=== PATIENT | male | born 1930 | race Caucasian/White ===

== ENCOUNTER 2018-07-22 18:42 | Inpatient (IN) ==
[2018-07-22] MEDS ORDERED: SODIUM CHLORIDE 0.9% 1,000 ML IV STA (19:43)
[2018-07-22 20:01] LABS: Basophils % 0.2 % (0.0-0.8); Eosinophils % 0.3 % (0.00-10.9); Hematocrit 46.9 VOL% (42.0-52.0); Hemoglobin 15.5 GM/DL (14.0-18.0); Immature Granulocytes % 0.4 %; Immature Granulocytes Absolute 0.05 #; Lymphocytes # 1.1 10*3/uL (1.4-4.0); Lymphocytes % 9.6 % (21.2-54.2); Mean Corpuscular Hemoglobin 31 PG (27-34); Mean Corpuscular Volume 93.6 FL (87-102); Mean Platelet Volume 11.4 FL (9.6-12.0); Monocytes # 0.9 10*3/uL (0.11-0.8); Monocytes % 7.1 % (1.7-12.7); Neutrophils # 9.8 10*3/uL (1.4-7.4); Neutrophils % 82.4 % (38.7-73.9); Platelet Count 156 T/CUMM (130-400); Red Blood Count 5.01 MC/CUMM (3.8-5.5); Red Cell Distribution Width 13.3 % (9.3-17.3); White Blood Count 11.9 T/CUMM (4-12)
[2018-07-22 20:08] LABS: Albumin 4.2 G/DL (3.4-5.0); Bilirubin,Total 1.1 MG/DL (0.2-1.0); Calcium 9.7 MG/DL (8.5-10.1); Osmolality,Calculated 277.7 MOS/KG (273-304); Potassium 4.4 MMOL/L (3.5-5.1); Total Protein 9.1 G/DL (6.4-8.3)
[2018-07-22 20:15] LABS: Apearance,Urine Slightly Hazy (Clear); Bacteria,Urine Many /HPF (Few); Bilirubin,Urine Negative (Negative); Blood, Urine Negative (Negative); Glucose,Urine (UA) Negative (Negative); Ketones,Urine 20 mg/dL (Negative); Mucus,Urine Occasional /LPF (Occasional); Nitrite,Urine Positive (Negative); Protein,Urine 30 MG/DL; RBC,Urine 2 /HPF (0-4); Squamous Epithelial Cell,Urine Occasional /HPF (0-10); Urine Color Yellow (Yellow); Urine Specific Gravity 1.025 (1.001-1.035); WBC,Urine 112 /HPF (0-6)
[2018-07-22] MEDS ORDERED: cefTRIAXone 1,000 MG in SODIUM CHLORIDE 0.9% 100 ML IV STA (20:19)
[2018-07-22] MEDS ORDERED: cefTRIAXone 1,000 MG in SYRINGE 1 EACH IV STA (20:31)
[2018-07-22] MEDS ORDERED: ONDANSETRON 4 MG/2 ML VIAL IV PRN (23:10)
[2018-07-22] MEDS ORDERED: ACETAMINOPHEN 325 MG TABLET PO PRN (23:10)
[2018-07-23] MEDS: ENOXAPARIN 40 MG/0.4 ML SYRINGE SUBCUT SCH ×2 (00:45→23:00)
[2018-07-23] MEDS: SODIUM CHLORIDE 0.9% 1,000 ML IV SCH ×3 (00:49→21:59)
[2018-07-23 04:45] LABS: Basophils % 0.2 % (0.0-0.8); Eosinophils % 0.4 % (0.00-10.9); Hematocrit 39.1 VOL% (42.0-52.0); Hemoglobin 12.8 GM/DL (14.0-18.0); Immature Granulocytes % 0.4 %; Immature Granulocytes Absolute 0.04 #; Lymphocytes # 1.4 10*3/uL (1.4-4.0); Lymphocytes % 14.3 % (21.2-54.2); Mean Corpuscular HGB Conc 32.7 GM/DL (32-36); Mean Corpuscular Hemoglobin 31 PG (27-34); Mean Corpuscular Volume 93.3 FL (87-102); Monocytes # 0.9 10*3/uL (0.11-0.8); Neutrophils # 7.5 10*3/uL (1.4-7.4); Neutrophils % 75.7 % (38.7-73.9); Platelet Count 128 T/CUMM (130-400); Red Blood Count 4.19 MC/CUMM (3.8-5.5); Red Cell Distribution Width 13.3 % (9.3-17.3); White Blood Count 9.9 T/CUMM (4-12)
[2018-07-23 05:09] LABS: Calcium 8.1 MG/DL (8.5-10.1); Osmolality,Calculated 277.5 MOS/KG (273-304); Thyroid Stimulating Hormone 0.964 uIU/ml (0.358-3.74)
[2018-07-23 09:08] LABS: Total Protein (Chem) 6.6 G/DL (6.4-8.3)
[2018-07-23 11:53] LABS: Albumin (SPE) 3.9 G/DL (3.2-5.3); Albumin (SPE) Rel % 59.5 %; Alpha 1 (SPE) 0.2 G/DL (0.1-0.4); Alpha 1 (SPE) Rel % 3.4 %; Alpha 2 (SPE) 0.8 G/DL (0.4-1.0); Alpha 2 (SPE) Rel % 12.5 %; Beta (SPE) 0.8 G/DL (0.5-1.1); Beta (SPE) Rel % 11.4 %; Gamma (SPE) 0.9 G/DL (0.7-1.7); Gamma (SPE) Rel % 13.2 %
[2018-07-23 16:00] LABS: Prostate Specific Antigen Diag 2.1 NG/ML (0-4)
[2018-07-23] MEDS: ASPIRIN EC 81 MG TABLET PO SCH (16:34)
[2018-07-23] MEDS: METOPROLOL SUCCINATE XL 25 MG TABLET PO SCH (18:17)
[2018-07-23] MEDS: cefTRIAXone 1,000 MG in SYRINGE 1 EACH IV SCH (21:51)
[2018-07-24] MEDS: SODIUM CHLORIDE 0.9% 1,000 ML IV SCH (02:26)
[2018-07-24 04:11] LABS: Basophils % 0.3 % (0.0-0.8); Eosinophils # 0.2 10*3/uL (0.0-0.87); Eosinophils % 2.5 % (0.00-10.9); Hematocrit 36.5 VOL% (42.0-52.0); Hemoglobin 11.8 GM/DL (14.0-18.0); Immature Granulocytes % 0.4 %; Immature Granulocytes Absolute 0.03 #; Lymphocytes # 1.5 10*3/uL (1.4-4.0); Lymphocytes % 22.4 % (21.2-54.2); Mean Corpuscular HGB Conc 32.3 GM/DL (32-36); Mean Corpuscular Hemoglobin 31 PG (27-34); Mean Corpuscular Volume 95.1 FL (87-102); Mean Platelet Volume 11.9 FL (9.6-12.0); Monocytes # 0.8 10*3/uL (0.11-0.8); Neutrophils # 4.3 10*3/uL (1.4-7.4); Neutrophils % 62.4 % (38.7-73.9); Platelet Count 124 T/CUMM (130-400); Red Blood Count 3.84 MC/CUMM (3.8-5.5); Red Cell Distribution Width 13.4 % (9.3-17.3); White Blood Count 6.8 T/CUMM (4-12)
[2018-07-24 04:44] LABS: Calcium 7.7 MG/DL (8.5-10.1); Osmolality,Calculated 284.3 MOS/KG (273-304); Potassium 3.9 MMOL/L (3.5-5.1)
[2018-07-24] MEDS: METOPROLOL SUCCINATE XL 25 MG TABLET PO SCH (09:05)
[2018-07-24] MEDS: ASPIRIN EC 81 MG TABLET PO SCH (09:05)
[2018-07-24] MEDS ORDERED: VANCOMYCIN 50 MG/ML 60 ML/BOTTLE PO SCH (13:47)
[2018-07-24] MEDS: VANCOMYCIN 50 MG/ML 60 ML/BOTTLE PO SCH ×2 (15:50→21:01)
[2018-07-24] MEDS: DESITIN 4OZ/NYSTATIN 15 GRAM MIXTURE PASTE TOP SCH ×2 (15:50→21:01)
[2018-07-24] MEDS: cefTRIAXone 1,000 MG in SYRINGE 1 EACH IV SCH (21:01)
[2018-07-25] MEDS: ENOXAPARIN 40 MG/0.4 ML SYRINGE SUBCUT SCH (00:37)
[2018-07-25] MEDS: VANCOMYCIN 50 MG/ML 60 ML/BOTTLE PO SCH ×4 (04:00→22:39)
[2018-07-25] MEDS: ASPIRIN EC 81 MG TABLET PO SCH (09:42)
[2018-07-25] MEDS: METOPROLOL SUCCINATE XL 25 MG TABLET PO SCH (09:42)
[2018-07-25] MEDS: DESITIN 4OZ/NYSTATIN 15 GRAM MIXTURE PASTE TOP SCH ×2 (09:43→22:38)
[2018-07-25] MEDS: APIXABAN 2.5 MG TABLET PO SCH ×2 (10:06→22:36)
[2018-07-25 10:13] LABS: Calcium 8.3 MG/DL (8.5-10.1); Osmolality,Calculated 282.3 MOS/KG (273-304); Potassium 3.9 MMOL/L (3.5-5.1)
[2018-07-25 13:11] LABS: Cancer Antigen 19-9 5.5 U/ML (0-37); Carcinoembryonic Antigen < 0.5 NG/ML (0.0-5.0)
[2018-07-25] MEDS: cefTRIAXone 1,000 MG in SYRINGE 1 EACH IV SCH (22:38)
[2018-07-26] MEDS: VANCOMYCIN 50 MG/ML 60 ML/BOTTLE PO SCH ×2 (04:04→09:45)
[2018-07-26 07:49] VITALS: BP 128/80
[2018-07-26 09:36] LABS: Immuno Free Light Chain Kappa 2.22 MG/DL (0.33-1.94); Immuno Free Light Chain Lambda 1.78 MG/DL (0.57-2.63); Immuno Free Light Chain Ratio 1.25 MG/DL (0.26-1.65)
[2018-07-26] MEDS: APIXABAN 2.5 MG TABLET PO SCH (09:44)
[2018-07-26] MEDS: ASPIRIN EC 81 MG TABLET PO SCH (09:44)
[2018-07-26] MEDS: METOPROLOL SUCCINATE XL 25 MG TABLET PO SCH (09:44)
[2018-07-26] MEDS: DESITIN 4OZ/NYSTATIN 15 GRAM MIXTURE PASTE TOP SCH (09:45)
== END 2018-07-26 11:00 | disposition home or self-care (01) | DRG 372 ==
LOC: N.EDINP 18:42 → N.ED 18:42 → N.TELEN 23:39 → SUATTDRO 07-25 09:21
PROVIDERS: ADMIT Internal Medicine; ATTEND Internal Medicine